=== PATIENT | male | born 1945 | race Caucasian/White ===

== ENCOUNTER 2020-01-04 14:58 | Emergency (ER) | payer MEDICARE, BC ==
[2020-01-04] MEDS ORDERED: AUGMENTIN500TAB PO (15:13)
[2020-01-04] MEDS ORDERED: BISOPRL/HCT1 PO (15:13)
[2020-01-04 15:34] VITALS: BP 142/73
== END 2020-01-04 15:34 | disposition home or self-care (01) ==
LOC: ED 14:58
DX: L04.0 Acute lymphadenitis of face, head and neck (principal); L08.9 Local infection of the skin and subcutaneous tissue, unspecified; I10 Essential (primary) hypertension